=== PATIENT | male | born 1945 | race Caucasian/White ===

== ENCOUNTER 2016-07-04 00:07 | Emergency (ER) | payer OTHER ==
[~2016-07-04] VITALS: Ht 177.8 cm; Wt 102.5 kg
[2016-07-04] MEDS ORDERED: LIPITOR10 M1 PO (00:31)
[2016-07-04 00:54] LABS: ABSOLUTE BASOPHIL COUNT 0.1 /CUMM (0.0-0.2); ABSOLUTE EOSINOPHIL COUNT 0.2 /CUMM (0.0-0.7); ABSOLUTE GRANULOCYTE CT 7.7 /CUMM (1.4-6.5); ABSOLUTE LYMPH COUNT 3.9 /CUMM (1.2-3.4); ABSOLUTE MONOCYTE COUNT 1.4 /CUMM (0.10-0.60); BASOPHIL % 0.9 % (0.0-2.0); EOSINOPHIL % 1.3 % (0-5); GRANULOCYTE % 58.3 % (42.2-75.2); HEMATOCRIT 49.3 % (42-52); MEAN CORPUSCULAR HGB 30.8 PG (27.0-31.0); MEAN CORPUSCULAR HGB CONC 34.6 G/DL (33.0-37.0); MEAN PLATELET VOLUME 11.2 FL (7.4-10.4); PLATELET COUNT 211 /CUMM (130-400); RBC DISTRIBUTION WIDTH 14.6 % (11.5-14.5); RED BLOOD CELL CT 5.53 /CUMM (4.70-6.10); WHITE BLOOD CELL COUNT 13.3 /CUMM (4.8-10.8)
--- NOTE | 2016-07-04 01:09 | RADIOLOGY REPORT ---
EXAMINATION: XR PORTABLE CHEST CLINICAL INFORMATION: Chest pain, shortness of breath. COMPARISON: Chest x-ray 06/17/2016 TECHNIQUE: Portable AP upright view of the chest was obtained. 12:50 AM FINDINGS: Lung volume low. This causes prominence of the central pulmonary vasculature and crowding of the bronchovascular markings. No focal consolidation or pleural effusion. IMPRESSION: Expiratory chest. No acute abnormality
--- NOTE | 2016-07-04 01:20 | ED CARDIAC/CP/PALPITATIONS ---
History of Present Illness General Chief Complaint: Chest Pain Stated Complaint: PT C/O CP ALL DAY PER PT DENIES CARDIAC HX Source: patient, old records Exam Limitations: no limitations Vital Signs & Intake/Output Vital Signs & Intake/Output Vital Signs Date Time Temp Pulse Resp B/P Pulse O2 O2 Flow FiO2 Ox Delivery Rate 07/04 0118 76 20 153/75 95 Room Air 07/04 0034 99 Room Air 07/04 0024 97.8 93 20 174/104 96 Room Air Allergies Coded Allergies: amoxicillin (Severe, RASH 07/05/16) penicillin V (UNKNOWN 07/04/16) Reconcile Medications Aspirin (Aspirin*) 325 MG TABLET 1 TAB PO DAILY CARDIAC (Reported) Atorvastatin Calcium (Lipitor) 10 MG TABLET 10 MG PO D CHOL (Reported) Triage Note: ARRIVED ER 12 VIA WC FROM [facility]. C/O SHARP PAINS IN CHEST WORSE WITH MOVEMENT PT HAS BEEN HAVING SOB WITH EXTERION,SAW PMD, HAD EKG,CXR,CHEST CT AND IS SCHEDULED FOR ECHO NEXT WEEK,EKG DONE Triage Nurses Notes Reviewed? yes HPI: Patient presents for evaluation of chest pain that has been present since late Wednesday. Patient states the pain has been constant since onset and described as tightness across the upper chest. The pain has been fluctuating in intensity and currently it is nearly gone. He denies any associated palpitations or diaphoresis. In addition he has had intermittent shortness of breath for which he saw his primary care physician about a month ago. Blood work was obtained and an echocardiogram is pending. Patient denies any known history of coronary artery disease and he states his only current medical problem his cholesterol. Past History Travel History Traveled to [place] past 21 day No Medical History Any Pertinent Medical History? see below for history Neurological: NONE EENT: NONE Cardiovascular: hyperlipidemia Respiratory: NONE Gastrointestinal: NONE Hepatic: NONE Renal: NONE Musculoskeletal: NONE Psychiatric: NONE Endocrine: NONE Blood Disorders: NONE Cancer(s): NONE Surgical History Surgical History: non-contributory Psychosocial History What is your primary language Kazakh Tobacco Use: Never used Family History Hx Contributory? No Review of Systems Review of Systems Constitutional: Reports: no symptoms. EENTM: Reports: no symptoms. Respiratory: Reports: no symptoms. Cardiovascular: Reports: chest pain. GI: Reports: no symptoms. Genitourinary: Reports: no symptoms. Musculoskeletal: Reports: no symptoms. Skin: Reports: no symptoms. Neurological/Psychological: Reports: no symptoms. Hematologic/Endocrine: Reports: no symptoms. Immunologic/Allergic: Reports: no symptoms. All Other Systems: Reviewed and Negative Physical Exam Physical Exam Cardiovascular: SEE BELOW Comments: Gen.: Well-nourished, well-developed, no acute respiratory distress. Head: Normocephalic, atraumatic. Eyes: Normal inspection bilaterally Ears: Normal inspection bilaterally Nose: Normal inspection Throat/mouth : Moist mucosa Neck: Supple, full range of motion, no goiter Heart: Regular rate and rhythm, no murmurs rubs or gallops Lungs: Clear to auscultation bilaterally with normal air entry Chest: Nontender Back: Normal range of motion Abdomen: Soft, nontender, nondistended, normal bowel sounds Extremities: Normal range of motion grossly, equal radial pulses, no cyanosis clubbing or edema Neurologic: Cranial nerves grossly intact, speech is clear Skin: warm and dry Psychiatric: Calm, cooperative, no apparent delusions or hallucinations Core Measures ACS in differential dx? No Severe Sepsis Present: No Septic Shock Present: No Progress Differential Diagnosis: AMI, aortic dissection, pneumonia, pneumothorax, unstable angina, aortic aneurysm Plan of Care: Orders Procedure Date/time Status TROPONIN LEVEL 07/04 0430 Complete EKG 07/04 0430 Active TROPONIN LEVEL 07/04 0030 Complete MAGNESIUM 07/04 0030 Complete COMPREHENSIVE METABOLIC PANEL 07/04 0030 Complete CHOLESTEROL 07/04 0030 Complete CBC WITHOUT DIFFERENTIAL 07/04 0030 Complete EKG 07/04 0011 Active Laboratory Tests 07/04/16 0419: Troponin I 0.03 07/04/16 0020: Anion Gap 9, Estimated GFR > 60, BUN/Creatinine Ratio 27.8 H, Glucose 96, Calcium 9.4, Magnesium 1.7, Total Bilirubin 0.6, AST 34, ALT 44, Alkaline Phosphatase 81, Troponin I 0.03, Total Protein 7.0, Albumin 3.9, Globulin 3.1, Albumin/Globulin Ratio 1.3, Cholesterol 175, CBC w Diff NO MAN DIFF REQ, RBC 5.53, MCV 89.0, MCH 30.8, RDW 14.6 H, MPV 11.2 H, Gran % 58.3, Lymphocytes % 29.1, Monocytes % 10.4 H, Eosinophils % 1.3, Basophils % 0.9, Absolute Granulocytes 7.7 H, Absolute Lymphocytes 3.9 H, Absolute Monocytes 1.4 H, Absolute Eosinophils 0.2, Absolute Basophils 0.1, PUBS MCHC 34.6 Diagnostic Imaging: Discussed w/RAD: Radiology Read. CXR Impression: PATIENT: STAR CHEN PRESENT AGE: 70 PATIENT ACCOUNT NO: [id number] : 45 LOCATION: [facility] ORDERING PHYSICIAN: KEANU BENTON MD SERVICE DATE: 07/04/16 EXAM TYPE: RAD - XRY-PORTABLE CHEST XRAY EXAMINATION: XR PORTABLE CHEST CLINICAL INFORMATION: Chest pain, shortness of breath. COMPARISON: Chest x-ray 06/17/2016 TECHNIQUE: Portable AP upright view of the chest was obtained. 12:50 AM FINDINGS: Lung volume low. This causes prominence of the central pulmonary vasculature and crowding of the bronchovascular markings. No focal consolidation or pleural effusion. IMPRESSION: Expiratory chest. No acute abnormality DICTATED BY: ORLANDO AMAYA MD DATE/TIME DICTATED:07/04/16104 CRATE BUILDER:TL DATE/ TIME TRANSCRIBED:07/04/16104 CONFIDENTIAL, DO NOT COPY WITHOUT APPROPRIATE AUTHORIZATION. <Electronically signed in Other Vendor System> SIGNED BY: ORLANDO AMAYA MD 07/04/16108 Initial ED EKG: NSR, rate (89), FREQUENT PVC'S Prior EKG: changed (NO PVC'S ON PRIOR) Comments: Patient had a CAT scan of the chest to rule out pulmonary embolism earlier this month with no apparent thoracic aortic aneurysm or dissection. I doubt PT is suffering from aortic pathology. 07/04/2016 2:00:22 AM I have updated Star on his test results. Fortunately he is now chest pain-free. He agrees to repeat EKG and troponin. 07/04/2016 6:09:43 AM I have updated Star and his test results. He remains chest pain free. I am paging Dr. Glynn. Patient's repeat EKG shows nondiagnostic T- wave changes laterally. Troponin remained stable and normal. 07/04/2016 6:37:45 AM patient's case discussed with Dr. Glynn who feels comfortable with the emergency department evaluation. He will follow-up with Star in his office. Departure Departure Disposition: HOME OR SELF CARE Condition: Stable Clinical Impression Primary Impression: Chest pain Qualifiers: Chest pain type: unspecified Qualified Code: R07.9 - Chest pain, unspecified Referrals: NOAH JAIMES MD (PCP/Family) Additional Instructions: Rest, no exertion or heavy lifting. Call Dr. Glynn's office on Wednesday and arrange for follow-up appointment as soon as possible. Please contact Dr. Jaimes and notify him of this emergency department visit and treatment plan. Return if any concerns or sudden worsening. Please note that there might be incidental findings in your evaluation that are unrelated to the current emergency department visit. Please notify your primary care doctor about this emergency department visit in order to obtain and review all of the testing performed so that these incidental findings can be monitored as needed. If you had an x-ray performed, please understand that some fractures may not be seen on the initial set of x-rays. If your symptoms persist you might need a repeat set of x-rays to check for such a fracture. If you had a laceration evaluated, please understand that foreign bodies such as glass or wood may not be visible to the naked eye or on plain x-rays. If the wound becomes red, swollen, increasingly more painful or if there is any drainage from the wound, please have it reevaluated by a physician for the possibility of a retained foreign body. Thank you for choosing the [facility] Emergency Department for your care. It was a pleasure to serve you today. Keanu Benton M.D. [facility] Departure Forms: Customer Survey General Discharge Information Critical Care Note Critical Care Note Critical Care Time: non-applicable
[2016-07-04 06:43] VITALS: BP 136/78
[2016-07-05] MEDS ORDERED: ASPIRIN325 M2 PO (13:25)
== END 2016-07-04 06:57 ==
LOC: ERH 00:07
PROVIDERS: Emergency Medicine
DX: R07.89 Other chest pain (principal)
CPT/HCPCS: 86618; 93005; 93010

== ENCOUNTER 2016-07-05 11:54 | Emergency (ER) | payer OTHER ==
[~2016-07-05] VITALS: Ht 177.8 cm; Wt 102.5 kg
[~2016-07-05 11:54] MED LIST: LIPITOR10 M1 PO
--- NOTE | 2016-07-05 12:14 | ED CARDIAC/CP/PALPITATIONS ---
History of Present Illness General Chief Complaint: Chest Pain Stated Complaint: CP Source: patient, old records Exam Limitations: no limitations Vital Signs & Intake/Output Vital Signs & Intake/Output Vital Signs Date Time Temp Pulse Resp B/P Pulse O2 O2 Flow FiO2 Ox Delivery Rate 07/05 1449 97.5 67 20 144/82 97 Room Air 07/05 1322 96 07/05 1322 70 18 131/64 96 Room Air 07/05 1251 82 18 159/96 94 Room Air 07/05 1206 96.1 76 18 163/100 96 Room Air Allergies Coded Allergies: amoxicillin (Severe, RASH 07/05/16) penicillin V (UNKNOWN 07/04/16) Reconcile Medications Aspirin (Aspirin*) 325 MG TABLET 1 TAB PO DAILY CARDIAC (Reported) Atorvastatin Calcium (Lipitor) 10 MG TABLET 10 MG PO D CHOL (Reported) Triage Note: 70 Y/O MALE C/O MID STERNAL CHEST PAIN SINCE . STATES PROGRESSIVELY GETTING WORSE, NOW WITH SOB AND WEAKNESS. WAS EVAL'D IN ED YESTERDAY AND D/REESE BUT STATES SYMPTOMS CONTINUE. EKG COMPLETED AND SIGNED TAKEN TO ROOM FOR EVAL. Triage Nurses Notes Reviewed? yes Onset: Gradual Duration: getting worse Timing: recent history Quality/Severity: mild, pressure Location: substernal Radiation: no radiation Activities at Onset: activity HPI: Patient is a 70-year-old male with a past medical history of hyperlipidemia and Lyme disease where he is received in the past PICC line and IV antibiotics for LYME, in which she presents emergency room stating that for the past 3-4 months he has noticed dyspnea and dyspnea on exertion for grossly worsening where he usually walks 4 miles a day however his last walk was 2 miles which was Wednesday where he had difficulty finishing up his normal walk. Patient also in the last 72 hours as had persistent mild substernal chest heaviness and difficulty breathing, patient was evaluated here at [facility] and had 2 sets of troponin and EKG unremarkable and blood work was essentially unremarkable where titer is currently pending patient did receive nitroglycerin he states with relief of his symptoms Patient currently complains of 1 out of 10 substernal chest pressure and shortness of breath. Denies any fevers chills or arm pain jaw pain nausea vomiting or leg swelling hemoptysis cough or diaphoresis. Patient does state last 24 hours he feels tired and weak and fatigued and has REQUIRED significant help to get out of bed. Patient has been taking aspirin for his symptoms where he took multiple doses today Patient says that prior to arrival to the ER yesterday he had significant 7/0 chest pressure (MELIDA DUMONT) Past History Travel History Traveled to [place] past 21 day No Medical History Any Pertinent Medical History? 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 No (MELIDA DUMONT) Review of Systems Review of Systems Constitutional: Reports: see HPI, malaise, weakness. EENTM: Reports: no symptoms. Respiratory: Reports: see HPI, short of breath. Cardiovascular: Reports: see HPI, chest pain. GI: Reports: no symptoms. Genitourinary: Reports: no symptoms. Musculoskeletal: Reports: no symptoms. Skin: Reports: no symptoms. Neurological/Psychological: Reports: no symptoms. Hematologic/Endocrine: Reports: no symptoms. Immunologic/Allergic: Reports: no symptoms. All Other Systems: Reviewed and Negative (MELIDA DUMONT) Physical Exam Physical Exam General Appearance: well developed/nourished, no apparent distress, alert Cardiovascular: regular rate/rhythm Comments: Well-developed well-nourished person in no acute distress HEENT: Normal EENT exam, extraocular motion intact, no nystagmus. Pupils equally round and reactive to light and accommodation. Nose is atraumatic. External auditory canal and Tympanic membranes clear. Pharynx normal. No swelling or edema. Neck: Supple, no lymphadenopathy, normal range of motion without pain or tenderness Back: Nontender, no CVA tenderness Cardiovascular: Regular rate and rhythms no murmurs rubs or gallops, normal JVP Respiratory: Chest nontender. No respiratory distress.breath sounds clear to auscultation bilaterally Abdomen: Soft, nontender nondistended, no appreciable organomegaly. Normal bowel sounds. No ascites Extremity: No edema, no calf tenderness to palpation, normal and equal pulses. Neuro: Alert oriented x3, motor sensory normal, cranial nerves II through XII grossly intact. Skin: No appreciable rash on exposed skin, skin is warm and dry. Psych: Mood and affect is normal, memory and judgment is normal. Core Measures ACS in differential dx? Yes Severe Sepsis Present: No Septic Shock Present: No (ELIN FARRELL,MELIDA) Progress Differential Diagnosis: AMI, aortic dissection, atrial fibrillation, cholecystitis, CHF/pulm edema, costochondritis, hyperkalemia, hypovolemia, hyperthyroid, hyperventilation, intracranial hemorrhage, musculoskeletal pain, myocarditis, pancreatitis, pericarditis, pneumonia, pneumothorax, PSVT, pulmonary embolism, PUD/GERD, PVCs/PACs, respiratory failure, rib fracture, sepsis, unstable angina, V-fib/V-Tach, WPW syndrome, LYME DISEASE, CARDIOMYOPATHY Plan of Care: Orders Procedure Date/time Status Add-on Test (ER Only) 07/05 1250 Active Telemetry/Ice Skating Teacher 07/05 1250 Active THYROID STIMULATING HORMONE 07/05 1221 Complete THYROXINE 07/05 1221 Complete MAGNESIUM 07/05 1221 Complete D-DIMER 07/05 1214 Complete LYME TITRE 07/05 1213 Active TROPONIN LEVEL 07/05 1205 Complete COMPREHENSIVE METABOLIC PANEL 07/05 1205 Complete CBC WITHOUT DIFFERENTIAL 07/05 1205 Complete EKG 07/05 1155 Active Laboratory Tests 07/05/16 1221: Anion Gap 11, Estimated GFR > 60, BUN/Creatinine Ratio 26.3 H, Glucose 88, Calcium 9.5, Magnesium 2.0, Total Bilirubin 0.9, AST 26, ALT 36, Alkaline Phosphatase 57, Troponin I 0.01, Total Protein 7.3, Albumin 4.1, Globulin 3.2, Albumin/Globulin Ratio 1.3, TSH 1.940, Thyroxine (T4) 8.0, D-Dimer 422 H, CBC w Diff NO MAN DIFF REQ, RBC 5.79, MCV 89.5, MCH 29.4, RDW 14.8 H, MPV 10.6 H, Gran % 51.8, Lymphocytes % 35.3, Monocytes % 10.9 H, Eosinophils % 1.7, Basophils % 0.3, Absolute Granulocytes 5.3, Absolute Lymphocytes 3.6 H, Absolute Monocytes 1.1 H, Absolute Eosinophils 0.2, Absolute Basophils 0, PUBS MCHC 32.9 L, Lyme Disease Antibody Pending Patient on initial examination was complaining of mild 1 out of 10 chest pain At rest she was in no apparent distress he was given sublingual nitroglycerin 07/05/2016 1:53:38 PM patient currently states that he has no symptoms and feels significantly improved and has no chest pain no weakness or malaise Patient did have an elevated d-dimer with CT angiogram is pending. Patient does state that prior to the sublingual nitroglycerin administered here complete resolution of the symptoms Patient also due to old records has had 3 sets of cardiac enzymes in the last 48 hours showing no concerns of cardiac ischemia and 3 EKGs and telemetry monitored noted to be normal sinus rhythm. CT angiogram ruled out pulmonary embolism. Patient was able to ambulate without symptoms of chest pain and dyspnea 02 saturation 97% room air Discussed symptoms with pattern molder Dr. Ann who agrees with plan to have patient follow-up outpatient with his established pattern molder Dr. Glynn. Discussed disposition plan with Dr. Hilton who agrees. Family and patient also agreed with disposition and plan. Upon discharge patient looks well no apparent distress and will comply with discharge instructions and had no questions. Culture currently is pending. Patient was strongly advised to follow up with PCP and pattern molder tomorrow and to return to emergency room if symptoms worsen and he will comply (ELIN FARRELL,MELIDA) Diagnostic Imaging: Viewed by Me: CT Scan. Radiology Impression: no acute abnormality Initial ED EKG: SINUS RHYTHM NOTED AT 75 BPM WITH BORDERLINE PROLONGED qt INTERVAL AND LEFT AXIAL DEVIATION Comments: PATIENT: CINTHIA CHEN PRESENT AGE: 70 PATIENT ACCOUNT NO: [id number] : 45 LOCATION: [facility] ORDERING PHYSICIAN: MELIDA FARRELL SERVICE DATE: 07/05/16-1251 EXAM TYPE: CAT - CTA CHEST-PULMONARY EMBOLISM EXAMINATION: CT ANGIOGRAM OF THE CHEST WITH AND WITHOUT CONTRAST (CT PULMONARY ANGIOGRAM FOR PE) CLINICAL INFORMATION: Chest pain and elevated d-dimer. Evaluate for a pulmonary embolus. COMPARISON: Multiple priors, most recent CTA chest dated 06/25/2016. TECHNIQUE: Prior to contrast administration, noncontrast localization images were obtained. Subsequently, multidetector volumetric imaging was performed from the thoracic inlet to below the diaphragms following the administration of 95 mL Optiray 350 intravenous contrast. No contrast reaction reported. Sagittal, coronal, and MIP oblique sagittal reformatted images were obtained on the CT workstation, uploaded to PACS, and reviewed. Total exam dose-length product 527.77 mGy-cm. FINDINGS: QUALITY OF STUDY/CONTRAST BOLUS: Satisfactory. PULMONARY ARTERIES: No central or segmental pulmonary emboli. THORACIC AORTA: No aneurysm or dissection. Scattered atherosclerotic calcifications. LUNG: No airspace consolidation. Mild unchanged scarring at the bilateral lung bases. No pulmonary nodule or mass. PLEURA: No pleural effusion or pneumothorax. Unchanged pleural thickening at the posterior right lung base with associated small calcifications. MEDIASTINUM: Normal heart size. No pericardial effusion. No hilar or mediastinal lymphadenopathy. No evidence of septal bowing or right heart strain. CHEST WALL/AXILLA: No axillary or internal mammary lymphadenopathy. OSSEOUS STRUCTURES: No lytic or blastic osseous lesion. Mild degenerative changes within the thoracic spine. UPPER ABDOMEN: The spleen is atrophic. There are multiple calcified gallstones within a contracted gallbladder. No reflux of contrast into the hepatic veins to suggest elevated right heart pressures. IMPRESSION: 1. No central or segmental pulmonary emboli. 2. Unchanged mild scarring at the bilateral lung bases. Stable pleural thickening with associated calcifications within the posterior aspect of the right lower lobe. 3. Atrophic spleen. Cholelithiasis. VTE: negative DICTATED BY: LLOYD Penny (MELIDA DUMONT) Departure Departure Disposition: HOME OR SELF CARE Condition: Stable Clinical Impression Primary Impression: Chest pain Secondary Impressions: Dyspnea Referrals: SAPNA GARCIA,NOAH (PCP/Family) Additional Instructions: As discussed continue home medications as directed. Follow-up tomorrow with your PRIMARY care doctor and your pattern molder Dr. Glynn for further evaluation treatment. If symptoms worsen return to emergency room Departure Forms: Customer Survey General Discharge Information (MELIDA DUMONT) PA/PERSONNEL AND PAYROLL TECHNICIAN Co-Sign Statement Statement: ED Attending supervision documentation- [X] I saw and evaluated the patient. I have also reviewed all the pertinent lab results and diagnostic results. I agree with the findings and the plan of care as documented in the PA's/PERSONNEL AND PAYROLL TECHNICIAN's documentation. [X] I have reviewed the ED Record and agree with the PA's/PERSONNEL AND PAYROLL TECHNICIAN's documentation. [] Additions or exceptions (if any) to the PAs/PERSONNEL AND PAYROLL TECHNICIAN's note and plan are summarized below: [] (DAMION GARCIA,ANGELICA Hui) Critical Care Note Critical Care Note Critical Care Time: non-applicable (MELIDA DUMONT)
[2016-07-05 12:31] LABS: ABSOLUTE BASOPHIL COUNT 0 /CUMM (0.0-0.2); ABSOLUTE EOSINOPHIL COUNT 0.2 /CUMM (0.0-0.7); ABSOLUTE GRANULOCYTE CT 5.3 /CUMM (1.4-6.5); ABSOLUTE LYMPH COUNT 3.6 /CUMM (1.2-3.4); ABSOLUTE MONOCYTE COUNT 1.1 /CUMM (0.10-0.60); BASOPHIL % 0.3 % (0.0-2.0); EOSINOPHIL % 1.7 % (0-5); GRANULOCYTE % 51.8 % (42.2-75.2); HEMATOCRIT 51.8 % (42-52); MEAN CORPUSCULAR HGB 29.4 PG (27.0-31.0); MEAN CORPUSCULAR HGB CONC 32.9 G/DL (33.0-37.0); MEAN CORPUSCULAR VOLUME 89.5 FL (80.0-94.0); MEAN PLATELET VOLUME 10.6 FL (7.4-10.4); PLATELET COUNT 208 /CUMM (130-400); RBC DISTRIBUTION WIDTH 14.8 % (11.5-14.5); RED BLOOD CELL CT 5.79 /CUMM (4.70-6.10); WHITE BLOOD CELL COUNT 10.3 /CUMM (4.8-10.8)
[2016-07-05] MEDS ORDERED: ASPIRIN325 M2 PO (13:25)
[2016-07-05 14:49] VITALS: BP 144/82
--- NOTE | 2016-07-05 14:57 | CT SCAN REPORT ---
EXAMINATION: CT ANGIOGRAM OF THE CHEST WITH AND WITHOUT CONTRAST (CT PULMONARY ANGIOGRAM FOR PE) CLINICAL INFORMATION: Chest pain and elevated d-dimer. Evaluate for a pulmonary embolus. COMPARISON: Multiple priors, most recent CTA chest dated 06/25/2016. TECHNIQUE: Prior to contrast administration, noncontrast localization images were obtained. Subsequently, multidetector volumetric imaging was performed from the thoracic inlet to below the diaphragms following the administration of 95 mL Optiray 350 intravenous contrast. No contrast reaction reported. Sagittal, coronal, and MIP oblique sagittal reformatted images were obtained on the CT workstation, uploaded to PACS, and reviewed. Total exam dose-length product 527.77 mGy-cm. FINDINGS: QUALITY OF STUDY/CONTRAST BOLUS: Satisfactory. PULMONARY ARTERIES: No central or segmental pulmonary emboli. THORACIC AORTA: No aneurysm or dissection. Scattered atherosclerotic calcifications. LUNG: No airspace consolidation. Mild unchanged scarring at the bilateral lung bases. No pulmonary nodule or mass. PLEURA: No pleural effusion or pneumothorax. Unchanged pleural thickening at the posterior right lung base with associated small calcifications. MEDIASTINUM: Normal heart size. No pericardial effusion. No hilar or mediastinal lymphadenopathy. No evidence of septal bowing or right heart strain. CHEST WALL/AXILLA: No axillary or internal mammary lymphadenopathy. OSSEOUS STRUCTURES: No lytic or blastic osseous lesion. Mild degenerative changes within the thoracic spine. UPPER ABDOMEN: The spleen is atrophic. There are multiple calcified gallstones within a contracted gallbladder. No reflux of contrast into the hepatic veins to suggest elevated right heart pressures. IMPRESSION: 1. No central or segmental pulmonary emboli. 2. Unchanged mild scarring at the bilateral lung bases. Stable pleural thickening with associated calcifications within the posterior aspect of the right lower lobe. 3. Atrophic spleen. Cholelithiasis. VTE: negative
== END 2016-07-05 15:30 ==
LOC: ERH 11:54
PROVIDERS: Emergency Medicine
DX: R07.89 Other chest pain (principal); R06.00 Dyspnea, unspecified
CPT/HCPCS: 86618; 93005; 93010; J3490